=== PATIENT | female | born 1935 | race Caucasian/White ===

== ENCOUNTER 2017-07-31 16:48 | Emergency (ER) | payer OTHER, BC ==
[~2017-07-31] VITALS: Ht 152.4 cm; Wt 91.7 kg
[~2017-07-31 16:48] MED LIST: AMLODIPINE BESYL5 MG PO; ASCORBIC ACID500 M3 PO; ATIVAN0.5 MG PO; BENAZEPRIL HCL20 MG PO; CLARITIN,ALAVAR10 MG PO; CLARITIN10 M3; COUMADIN5 MG PO; FOLIC ACID0.4 MG PO; HYDROCHLOROTHIA25 MG PO; LEVOTHYROXINE75 MCG PO; MEDROL DOSEPAK4 MG PO; PROTONIX40 MG PO; ST. JOSEPH ASPI81 MG PO; XARELTO15 MG PO; XARELTO20 MG PO
[2017-07-31 18:24] VITALS: BP 128/64
== END 2017-07-31 18:25 | disposition home or self-care (01) ==
LOC: EME 16:48
DX: T78.49XA Other allergy, initial encounter (principal); X58.XXXA Exposure to other specified factors, initial encounter; Z85.828 Personal history of other malignant neoplasm of skin; Z98.890 Other specified postprocedural states; I10 Essential (primary) hypertension; Z86.711 Personal history of pulmonary embolism; Z90.722 Acquired absence of ovaries, bilateral; Z90.710 Acquired absence of both cervix and uterus
CPT/HCPCS: 99281; 99284; J7512

== ENCOUNTER 2017-08-17 04:27 | Emergency (ER) | payer OTHER, BC ==
[~2017-08-17] VITALS: Ht 152.4 cm; Wt 88.6 kg
[2017-08-17] MEDS ORDERED: ZOFRAN ODT4 MG PO (05:33)
[2017-08-17 05:57] VITALS: BP 159/63
== END 2017-08-17 05:58 | disposition home or self-care (01) ==
LOC: EME → EDBD 04:27 → EME 05:58
DX: R00.2 Palpitations (principal); E03.9 Hypothyroidism, unspecified; I10 Essential (primary) hypertension; Z86.711 Personal history of pulmonary embolism; Z88.2 Allergy status to sulfonamides; Z88.6 Allergy status to analgesic agent; Z88.8 Allergy status to other drugs, medicaments and biological substances
CPT/HCPCS: 93005; 99281; 99284